=== PATIENT | female | born 1960 | race Caucasian/White ===

== ENCOUNTER 2024-06-10 13:10 | Emergency (ER) | payer OTHER, SELFPAY ==
[2024-06-10 13:12] VITALS: BP 141/121; PULSE 77; RESP 18; TEMP 36.6; O2SAT 98; BMI 25.9
--- NOTE | 2024-06-10 13:38 | EKG12_ITS ---
Test Reason : SYNC Blood Pressure : */* mmHG Vent. Rate : 74 BPM Atrial Rate : 74 BPM P-R Int : 134 ms QRS Dur : 84 ms QT Int : 362 ms P-R-T Axes : 50 64 20 degrees QTcB Int : 401 ms Normal sinus rhythm Normal ECG Confirmed by FLAKITO LACKEY, FORREST ([id number]), videotape editor DYLON DNAIEL ([id number]) on 06/12/2024 5:59:18 AM Referred By: Confirmed By: FORREST FRAGA MD
--- NOTE | 2024-06-10 13:41 | EX.ED.DYSGE1 ---
HPI <UMA Delacruz - Last Filed: 06/10/24 16:31> History of Present Illness Chief Complaint: Syncope Narrative Narrative: Patient presenting today with her daughter and granddaughter due to a episode of syncope that occurred this afternoon. She was donating blood, she donated a pint and afterwards she was sitting at a table and began to feel lightheaded, she then had a syncopal episode. No seizure-like activity occurred, she did not hit her head. When she regained consciousness she did have an episode of vomiting. She present she is now feeling well. She has been lightheaded and presyncopal in the past after donating blood. She did eat before donating today. She denies any associated fevers, chills, chest pain, shortness of breath, and abdominal pain. PFSH <UMA Delacruz - Last Filed: 06/10/24 16:31> PFSH Medical History Hypothyroidism High blood cholesterol Diabetes type 2 Allergy/AdvReac Type Severity Reaction Status Date / Time No Known Allergies Allergy Verified 06/10/24 13:17 Surgical History Hx of tubal ligation H/O: hysterectomy History of appendectomy Social History Smoking Status: Never smoker ROS <UMA Delacruz - Last Filed: 06/10/24 16:31> ROS ED Constitutional Constitutional ED: Denies chills or fever(s) Cardiovascular Cardiovascular: Denies chest pain or palpitations Respiratory/Chest Respiratory/Chest: Denies dyspnea Gastrointestinal Gastrointestinal: Reports vomiting; Denies abdominal pain Genitourinary Genitourinary ED: Denies dysuria, hematuria or urinary urgency Musculoskeletal Musculoskeletal: Denies arthralgias Integumentary Denies rash Neurologic Neurologic: Denies dizziness or weakness EXAM <UMA Delacruz - Last Filed: 06/10/24 16:31> Physical Exam Const Vital Signs: 06/10/24 13:12 06/10/24 15:16 06/10/24 15:17 Temperature 97.9 F 97.7 F L Temperature Source Oral Pulse Rate 77 83 83 Respiratory Rate 18 16 16 Blood Pressure 141/121 H 117/66 117/66 Blood Pressure Mean 127 83 83 Pulse Ox 98 99 99 Oxygen Delivery Method Room Air Room Air Positive well nourished, well developed and no apparent distress General Appearance ED: well developed HEENT Reports normocephalic, head/scalp atraumatic and dry mucous membranes Mouth ED: Yes dry mucous membranes Mouth: dry mucous membranes Eyes PERRL and EOMs intact bilaterally Neck full ROM and supple Chest Wall inspection of chest normal Resp normal respiratory effort and clear to auscultation bilaterally Cardio regular rate and regular rhythm GI soft to palpation, non-tender, non-distended and no masses Back/Spine normal ROM and normal to inspection Extremity normal to inspection and full ROM Neuro oriented x3, CN's II-XII intact bilaterally, moves all extremities, no focal motor deficits and no sensory deficits noted Sensorium / Orientation: awake and alert Psych mental status grossly normal and thought process normal Skin no rashes or lesions noted and no wounds <Dr. Vasu Raphael DO - Last Filed: 06/10/24 16:34> Physical Exam Const Vital Signs: 06/10/24 13:12 06/10/24 15:16 06/10/24 15:17 Temperature 97.9 F 97.7 F L Temperature Source Oral Pulse Rate 77 83 83 Respiratory Rate 18 16 16 Blood Pressure 141/121 H 117/66 117/66 Blood Pressure Mean 127 83 83 Pulse Ox 98 99 99 Oxygen Delivery Method Room Air Room Air [facility] <UMA Delacruz - Last Filed: 06/10/24 16:31> [facility] Narrative Medical decision making narrative: Patient presenting today due to a syncopal episode that occurred after donating a pint of blood. She has donated blood in the past, she has felt lightheaded and presyncopal in the past but has never had a full syncopal episode. The episode occurred right after she had donated. No seizure-like activity occurred. She did have an episode of vomiting when she woke up. She reports that she is now feeling well. She had no chest pain or any other symptoms prior to passing out and is now asymptomatic. Her vitals are unremarkable. She does appear dry and will be given IV fluids. H&H was obtained, her hemoglobin is 11.2. Glucose is 153. EKG is normal sinus rhythm. She was ambulated by the nursing and did well and is wanting to go home. Suspect that she had a an episode of vasovagal syncope. She will be discharged home in stable condition. Recommended following up with PCP. Lab Data Attestation: I reviewed the patient's lab results. Labs: Laboratory Results - last 24 hr 06/10/24 06/10/24 13:50 13:55 Hgb 11.2 L Hct 34.8 L POC Glucose 153 H EKG Initial EKG: Comments: 74 bpm, normal sinus rhythm, no ST elevation, interpreted by attending ED physician <Dr. Vasu Raphael, DO - Last Filed: 06/10/24 16:34> MDM MDM Narrative Medical decision making narrative: Patient presenting today due to a syncopal episode that occurred after donating a pint of blood. She has donated blood in the past, she has felt lightheaded and presyncopal in the past but has never had a full syncopal episode. The episode occurred right after she had donated. No seizure-like activity occurred. She did have an episode of vomiting when she woke up. She reports that she is now feeling well. She had no chest pain or any other symptoms prior to passing out and is now asymptomatic. Her vitals are unremarkable. She does appear dry and will be given IV fluids. H&H was obtained, her hemoglobin is 11.2. Glucose is 153. She was ambulated by the nursing and did well and is wanting to go home. Suspect that she had a an episode of vasovagal syncope. She will be discharged home in stable condition. Recommended following up with PCP. Supervisory Physician Note Patient was seen and examined with the Advanced Practice Provider. Nursing notes and vital signs have been reviewed. Pertinent old records have been reviewed. I agree with the essential elements of the LIZZETH's history, physical exam, assessment, and plan. The differential diagnosis and management options were discussed with the LIZZETH. I participated in determining and agree with the management, procedures, final impression and disposition as documented. See changes noted by me. Please see addendum or separate note for any additional details. EKG: Interpreted by me/EM physician: EKG shows normal sinus rhythm with a heart rate of 74. No acute ischemic changes. Impression: 1. Vasovagal syncope secondary to blood donation Lab Data Labs: Laboratory Results - last 24 hr 06/10/24 06/10/24 13:50 13:55 Hgb 11.2 L Hct 34.8 L POC Glucose 153 H Discharge Plan Triage Chief Complaint: Syncope ED Midlevel Provider: Lexy Lakhani ED Provider: Vasu Raphael Dx/Rx/DC Orders Clinical Impression: Syncope, vasovagal Instructions: ED Fainting, Vagal Reaction Primary Care Provider: Susie Yeh Referrals: Susie Yeh MD [Primary Care Provider] - 5-7 Days Activity Restrictions/Additional Instructions: Follow-up with your PCP and return for any other concerns. Print Language: Greek Disposition Disposition: Home, Self Care Discharge Date/Time: 06/10/24 15:17
[2024-06-10] MEDS: 0.9% Normal Saline (1000mL) 1,000 ML 999 ML IV (14:03)
[2024-06-10 14:05] LABS: Hematocrit 34.8 % (37-47); Hemoglobin 11.2 g/dL (12.0-15.0)
[2024-06-10 14:13] LABS: Bedside Glucose 153 mg/dL (74-106)
[2024-06-10 15:16] VITALS: BP 117/66; PULSE 83; RESP 16; O2SAT 99
[2024-06-10 15:17] VITALS: BP 117/66; PULSE 83; RESP 16; TEMP 36.5; O2SAT 99
== END 2024-06-10 15:17 | disposition home or self-care (01) ==
PROVIDERS: Physician Assistant; Emergency Provider Surgery; PCP Internal Medicine; Visit Provider Surgery
DX: R55 Syncope and collapse (principal); E11.9 Type 2 diabetes mellitus without complications
CPT/HCPCS: 82962; 85014; 85018; 93005; 96360; 99285; A4216